=== PATIENT | male | born 1945 | race Caucasian/White ===

== ENCOUNTER → 2024-07-18 | Outpatient (CLI) | payer OTHER, SELFPAY ==
[2024-07-18 10:14] LABS: Basophils # (Auto) 0.1 Thou/mm3 (0.0-0.2); Basophils % (Auto) 1 % (0-2.5); Eosinophils # (Auto) 0.3 Thou/mm3 (0.0-0.5); Eosinophils % (Auto) 5 % (0-10); Hematocrit 40.7 % (41.0-53.0); Hemoglobin 13.5 g/dL (13.5-16.0); Immature Granulocytes % (Auto) 0 % (0-0); Immature Granulocytes Auto 0.01 Thou/mm3 (0.00-0.00); Lymphocytes # (Auto) 1.4 Thou/mm3 (1.0-4.8); Lymphocytes % (Auto) 24 % (10-50); Mean Corpuscular HGB Conc 33.2 g/dl (31.0-37.0); Mean Corpuscular Hemoglobin 31.5 pg (25.0-35.0); Mean Corpuscular Volume 95 fL (80-100); Monocytes # (Auto) 0.6 Thou/mm3 (0.0-0.8); Monocytes % (Auto) 10 % (0-12); Neutrophils # (Auto) 3.8 Thou/mm3 (1.8-7.7); Neutrophils % (Auto) 61 % (37-80); Nucleated Red Blood Cell % 0 /100 WBC (0); Platelet Count 244 Thou/mm3 (140-440); RDW Standard Deviation 42.5 fL (35.1-43.9); Red Blood Count 4.28 Miln/mm3 (4.50-5.90); White Blood Count 6.1 Thou/mm3 (3.8-10.6)
[2024-07-18 10:28] LABS: Alanine Aminotransferase 69 U/L (10-49); Albumin, Serum 4.4 gm/dL (3.4-4.8); Albumin/Globulin Ratio 1.9 (1.2-2.2); Alkaline Phosphatase 88 U/L (46-116); Anion Gap 5 (7-16); Aspartate Amino Transferase 40 U/L (0-34); BUN/Creatinine Ratio 21 Ratio (12-20); Bilirubin,Total 0.6 mg/dL (0.3-1.2); Blood Urea Nitrogen 25 mg/dL (9-23); Calcium 9.6 mg/dL (8.3-10.6); Calcium (Corrected) 9.6 mg/dL (8.5-10.1); Carbon Dioxide 28.3 mMol/L (20.0-31.0); Cardiac Risk Estimate 3.8 RATIO (4.0-6.7); Chloride 105 mMol/L (98-107); Cholesterol 165 mg/dL (132-200); Creatinine (Component) 1.2 mg/dL (0.6-1.3); Globulin 2.3 gm/dL (2.3-3.5); Glucose 102 mg/dL (74-106); HDL Cholesterol 44 mg/dL (40-60); LDL Cholesterol,Calculated 103 mg/dL (0-130); Osmolality,Calculated 280 (275-295); Potassium 4.7 mMol/L (3.4-5.1); Sodium 138 mMol/L (136-145); Thyroid Stimulating Hormone 2.32 uIU/mL (0.55-4.78); Total Protein 6.7 gm/dL (5.7-8.2); Triglycerides 89 mg/dL (30-150); eGFR > 60 See Note
== END | disposition home or self-care (01) ==
PROVIDERS: PCP Family Medicine; Referring Provider Family Medicine; Visit Provider Family Medicine
DX: I10 Essential (primary) hypertension (principal); E78.5 Hyperlipidemia, unspecified
CPT/HCPCS: 36415; 80053; 80061; 84443; 85025

== ENCOUNTER → 2024-09-05 | Outpatient (CLI) | payer OTHER, SELFPAY ==
[2024-09-05 10:35] LABS: Basophils # (Auto) 0.1 Thou/mm3 (0.0-0.2); Basophils % (Auto) 1 % (0-2.5); Eosinophils # (Auto) 0.2 Thou/mm3 (0.0-0.5); Eosinophils % (Auto) 4 % (0-10); Hematocrit 40.6 % (41.0-53.0); Hemoglobin 13.3 g/dL (13.5-16.0); Immature Granulocytes % (Auto) 0 % (0-0); Immature Granulocytes Auto 0.02 Thou/mm3 (0.00-0.00); Lymphocytes # (Auto) 1.3 Thou/mm3 (1.0-4.8); Lymphocytes % (Auto) 19 % (10-50); Mean Corpuscular HGB Conc 32.8 g/dl (31.0-37.0); Mean Corpuscular Hemoglobin 31.2 pg (25.0-35.0); Mean Corpuscular Volume 95 fL (80-100); Monocytes # (Auto) 0.5 Thou/mm3 (0.0-0.8); Monocytes % (Auto) 7 % (0-12); Neutrophils # (Auto) 4.8 Thou/mm3 (1.8-7.7); Neutrophils % (Auto) 70 % (37-80); Nucleated Red Blood Cell % 0 /100 WBC (0); Platelet Count 257 Thou/mm3 (140-440); Red Blood Count 4.26 Miln/mm3 (4.50-5.90); White Blood Count 6.9 Thou/mm3 (3.8-10.6)
[2024-09-05 11:09] LABS: Alanine Aminotransferase 26 U/L (10-49); Albumin, Serum 4.6 gm/dL (3.4-4.8); Albumin/Globulin Ratio 1.9 (1.2-2.2); Alkaline Phosphatase 90 U/L (46-116); Anion Gap 11 (7-16); Aspartate Amino Transferase 21 U/L (0-34); BUN/Creatinine Ratio 19 Ratio (12-20); Bilirubin,Total 0.6 mg/dL (0.3-1.2); Blood Urea Nitrogen 25 mg/dL (9-23); Calcium 9.7 mg/dL (8.3-10.6); Calcium (Corrected) 9.7 mg/dL (8.5-10.1); Carbon Dioxide 28.1 mMol/L (20.0-31.0); Cardiac Risk Estimate 2.9 RATIO (4.0-6.7); Chloride 103 mMol/L (98-107); Cholesterol 138 mg/dL (132-200); Creatinine (Component) 1.3 mg/dL (0.6-1.3); Globulin 2.4 gm/dL (2.3-3.5); Glucose 108 mg/dL (74-106); HDL Cholesterol 47 mg/dL (40-60); LDL Cholesterol,Calculated 76 mg/dL (0-130); Osmolality,Calculated 288 (275-295); Potassium 4.4 mMol/L (3.4-5.1); Sodium 142 mMol/L (136-145); Thyroid Stimulating Hormone 2.58 uIU/mL (0.55-4.78); Triglycerides 75 mg/dL (30-150); eGFR 56 See Note
== END | disposition home or self-care (01) ==
PROVIDERS: PCP Family Medicine; Referring Provider Family Medicine; Visit Provider Family Medicine
DX: I10 Essential (primary) hypertension (principal); E78.5 Hyperlipidemia, unspecified
CPT/HCPCS: 36415; 80053; 80061; 84443; 85025

== ENCOUNTER 2024-12-27 12:57 | Emergency (ER) | payer OTHER, SELFPAY ==
[2024-12-27 13:04] VITALS: BP 193/97; BP 212/102; PULSE 63; RESP 18; TEMP 36.7; O2SAT 97; BMI 28.7
--- NOTE | 2024-12-27 13:13 | EKG_ITS ---
[facility] Test Date: 2024-12-27 Pat Name: GONZALEZ FRANCOIS Department: Room: - Gender: Male Facility Worker: : 1945 Requested By: Julia Srinivasan Order Number: [id number] Reading MD: Julia Srinivasan Measurements Intervals [place] Rate: 65 P: 44 VA: 174 QRS: -7 QRSD: 118 T: 64 QT: 402 QTc: 419 Interpretive Statements SINUS RHYTHM LEFT VENTRICULAR HYPERTROPHY AND ST-T CHANGE [VOLTAGE CRITERIA PLUS ST/T ABNORMALITY] Compared to ECG 09/16/2019 10:23:01 Left ventricular hypertrophy now present ST (T wave) deviation now present Sinus bradycardia no longer present Intraventricular conduction delay no longer present T-wave abnormality no longer present /store/S0/[id number].pdf
--- NOTE | 2024-12-27 13:18 | EDNOTE_ITS ---
ED Medical Clearance RME/HPI General Chief complaint: Medical Clearance Stated complaint: MEDICAL CLEARANCE Time Seen by Provider: 12/27/24 13:17 Arrival date/time: 12/27/24 12:57 Limitations: no limitations RME / HPI RME / HPI Narrative: 79 year old male with history of hypertension, CAD s/p PCI, hyperlipidemia presents to the ED BIB [facility] for evaluation of chest pain and elevated blood pressure today. Patient describes his pain as tightness in sensation that is located most to the left side of chest and began after being arrested. Denied having any pain prior to arrest. Per [facility] who accompany the patient, while in detention the blood pressure was noted to be 180/110. While in the ED patient has no other complaints. Related Information Home Medications ?Medication ?Instructions ?Recorded ?Confirmed propranolol 40 mg tablet 40 mg PO DAILY #0 tabs 11/0711/21/18 simvastatin 40 mg tablet (Zocor) 40 mg PO HS #0 tabs 0 11/07/16 11/21/18 aspirin 81 mg tablet,delayed 81 mg PO QDAY 11/18/18 release (Aspir-Low) coQ10 (liposomal ubiquinol) 100 30 ml PO DAILY 9 11/18/18 mg/5 mL oral suspension hydroxyzine HCl 50 mg tablet 50 mg PO DAILY 11/18/18 0 11/21/18 loratadine 10 mg tablet 10 mg PO QDAY 11/18/1811/21 omega 5-umg-wvg-fish oil 1,000 mg 2 cap PO DAILY 11/1811/18/18 (120 mg-180 mg) capsule (Fish Oil) pantoprazole 40 mg tablet,delayed 40 mg PO QDAY 11/21/18 release tramadol 100 mg tablet,extended 100 mg PO BID 11/18/18 11/21/18 release 24 hr valsartan 80 mg tablet 80 mg PO QDAY 11/18/1811/21 Previous Rx's ?Medication ?Instructions ?Recorded naproxen 500 mg tablet (Naprosyn) 500 mg PO BID #30 ta bs 07/24/20 Allergies Allergy/AdvReac Type Severity Reaction Status Date / Time No Known Allergies Allergy Verified 11/21/18 06:46 Review of Systems Review of Systems Narrative Review of Systems: GEN: No fever, no chills, no weight loss EYES: No discharge, no visual changes, no pain HEENT: No ear pain, no congestion, no sore throat PULM: No shortness of breath, no cough, no congestion CV: + chest pain, no dyspnea on exertion, no palpitations GI: No nausea, no vomiting, no diarrhea, no pain, no constipation : No frequency, no urgency, no dysuria MUSC/SKEL: No joint pain, no back pain SKIN: No rash NEURO: No weakness, no headache Past Medical History Past Medical History NEUROLOGIC: Positive Neurological Disorders and Cerebrovascular Accident (10/[address] [facility]) CARDIAC: Positive Cardiac Disorders (CORONARY STENT X1 2009), Hypercholesterolemia (TAKES MED) and Hypertension (TAKES MED) MUSCULOSKELETAL: Positive Musculoskeletal Disorders and Arthritis OTHER HISTORY: Positive Hospitalization (HOSP FOR CVA 10/11) and Chicken Pox Family History FAMILY HISTORY: Positive Family Cardiac Disorders (BROTHER (OPEN HEART), MOTHER (HTN),FATHER (CVA)), Family Cancer (MOTHER) and Family Surgery (MOTHER,FATHER) Surgical History SURGICAL: Positive Coronary Stent (X1) and Tonsillectomy Social History SMOKING STATUS: Former smoker ED Exam General Limitations: Present no limitations General appearance: Present alert and in no apparent distress Head Head exam: Present atraumatic, normocephalic and normal inspection Eye Eye exam: Present normal appearance, PERRL and EOMI ENT ENT exam: Present normal exam, normal oropharynx and mucous membranes moist Neck Neck exam: Present normal inspection, full ROM and trachea midline Chest Chest inspection: Present normal inspection and symmetric chest wall rise Respiratory Respiratory exam: Present normal lung sounds bilaterally Cardiovascular Cardiovascular exam: Present regular rate, normal rhythm and normal heart sounds Abdominal Exam Abdominal exam: Present soft and normal bowel sounds Extremities Exam Extremities exam: Present normal inspection and full ROM Back Exam Back exam: Present normal inspection and full ROM Neurological Exam Neurological exam: Present alert, oriented X3 and CN II-XII intact Psychiatric Psychiatric exam: Present normal affect and normal mood Skin Skin exam: Present warm, dry, intact and normal color Course Quality Measures none Orders Category Date Time Status Computer Animator Q4H START 00 Care 12/27/24 13:12 Active EKG (ED ONLY) *Do not use* NOW Care 12/27/24 13:13 Active EKG (ED Only) Stat Exams 12/27/24 13:13 Draft XR chest 1V portable Stat Exams 12/27/24 13:18 Completed B-Type Natriuretic Peptide Stat Lab 12/27/24 13:45 Completed CBC Stat Lab 12/27/24 13:45 Completed Comprehensive Metabolic Panel Stat Lab 12/27/24 13:45 Completed HCG Titer if Positive Stat Lab 12/27/24 13:45 Completed Lipase Stat Lab 12/27/24 13:45 Completed Magnesium Stat Lab 12/27/24 13:45 Completed Partial Thromboplastin Time Stat Lab 12/27/24 13:45 Completed Prothrombin Time with INR Stat Lab 12/27/24 13:45 Completed Troponin I Stat Lab 12/27/24 13:45 Completed Ondansetron Inj [Zofran Inj] Med 12/27/24 13:17 Active 4 mg IV Q1HR PRN amLODIPine BESYLATE [Norvasc] Med 12/27/24 17:02 Discontinued 10 mg PO X1 ONE Vital Signs Vital signs: Vital Signs Temperature 98.1 F 12/27/24 13:04 Pulse Rate 63 12/27/24 13:04 Respiratory Rate 18 12/27/24 13:04 Blood Pressure 212/102 H 12/27/24 13:04 Pulse Oximetry (%) 97 12/27/24 13:04 Oxygen Delivery Method Room Air 12/27/24 13:04 Pulse ox is 97% on room air which is adequate. Medical Clearance MDM Narrative [facility] Narrative:: Isabella Collier am scribing for and in the presence of Dr. Rojas. 79 year old male presented to the ED for chest pain following arrest. Full cardiac workup was performed, including EKG, cardiac enzymes, and chest X- ray?all of which were unremarkable. No evidence of acute coronary syndrome, pneumothorax, or other emergent pathology. Chest pain appears non-cardiac in etiology. The patient remained hemodynamically stable throughout evaluation. Given normal diagnostic findings and clinical stability, the patient was medically cleared for incarceration. Patient data External records reviewed:: [facility] previous records (I reviewed ED visit on 07/24/2020 ) Clinical information provided by:: patient and law enforcement Social determinants that could affect healthcare access:: none Patient has the following chronic illnesses:: HTN, CAD s/p PCI How is presenting disease/condition affected by chronic disease/condition?: exacerbated by Evaluation data The following diagnostics were reviewed and interpreted by me:: lab results and EKG tracing(s) (EKG @ 13:18 hours. Sinus rhythm, rate 65, LVH, no ischemia, normal QT interval ) Lab and/or radiology exams considered but not ordered:: None Interpretation Summary: Ordering Physician: Julia Srinivasan MD Date of Service: 12/27/24 Procedure(s): XR chest 1V portable Accession Number(s): [id number] cc: Julia Srinivasan MD; Cameron Sandoval MD; Kaylene Toscano MD~ Examination: AP chest single view TECHNIQUE: AP portable upright chest single view Exam date and time: December 27, 2024 1458 hours INDICATIONS: Chest pain shortness of breath beginning today FINDINGS: Normal heart size No lobar pneumonia or pulmonary edema Prominent osteopenia IMPRESSION: No lobar pneumonia or pulmonary edema Dictated By: Cameron Sandoval MD Signed By: <Electronically signed by Cameron Sandoval MD in OV> 12/27/24 1512 Medications / Prescriptions Medications or Prescriptions considered but not ordered:: None Medication administrations:: Medication Administration History Ondansetron HCl (Ondansetron Inj 2 Mg/Ml Inj 2 Ml) 4 mg IV Q1HR PRN PRN Reason: PERSISTENT NAUSEA OR VOMITING Discontinued Medications Amlodipine Besylate (Amlodipine Besylate 5 Mg Tablet) 10 mg PO X1 ONE Stop: 12/27/24 17:03 Last Admin: 12/27/24 17:19 Dose: 10 mg Documented By: EF See above Consultations Consultation(s) initiated? (list below): No Diagnosis Medical Clearance Differential Diagnosis: other (Chest pain, angina, AR, anxiety ) Most likely diagnosis given after review of the tests above:: Acute chest wall pain Admission Indicated Admission indicated?: not indicated Admission Request Was there a request for admission?: No Disposition Plan Disposition Plan: Discharge Discharge Attestation Discharge Attestation: The patient and all family members were given an opportunity to ask questions and understood the discharge instructions. Discharge instructions specifically effects, indications for sooner follow up or return to the emergency department, and the expected course of current diagnosis. Patient condition: Stable Discharge Plan Plan Patient Disposition: Halfway/Court/Law Prescriptions/Referrals Prescriptions/Med Rec: No Action simvastatin [Zocor] 40 MG tablet 40 mg PO HS Qty: 0 propranolol 40 mg Tablet 40 mg PO DAILY Qty: 0 valsartan 80 mg Tablet 80 mg PO QDAY hydroxyzine HCl 50 mg Tablet 50 mg PO DAILY aspirin [Aspir-Low] 81 mg Tablet,Delayed Release (Dr/Ec) 81 mg PO QDAY pantoprazole 40 mg Tablet,Delayed Release (Dr/Ec) 40 mg PO QDAY loratadine 10 mg Tablet 10 mg PO QDAY tramadol 100 mg Tablet Extended Release 24 Hr 100 mg PO BID coQ10 (liposomal ubiquinol) 100 mg/5 mL Suspension 30 ml PO DAILY omega 3-rey-uqw-fish oil [Fish Oil] 1,000 mg (120 mg-180 mg) Capsule 2 cap PO DAILY naproxen [Naprosyn] 500 mg tablet 500 mg PO BID Qty: 30 0RF Referrals: Kaylene Perrin MD [Primary Care Provider] - In 1 week Problem List Clinical Impression: Acute chest wall pain Patient/Caregiver Discharge Instructions Discharge Activity: activity as tolerated Education Materials: ED Chest Pain, Noncardiac Print Language: Slovak
[2024-12-27 13:50] LABS: Basophils # (Auto) 0.1 Thou/mm3 (0.0-0.2); Basophils % (Auto) 1 % (0-2.5); Eosinophils # (Auto) 0.1 Thou/mm3 (0.0-0.5); Eosinophils % (Auto) 1 % (0-10); Hematocrit 39.3 % (41.0-53.0); Hemoglobin 13.4 g/dL (13.5-16.0); Immature Granulocytes % (Auto) 0 % (0-0); Immature Granulocytes Auto 0.02 Thou/mm3 (0.00-0.00); Lymphocytes % (Auto) 13 % (10-50); Mean Corpuscular HGB Conc 34.1 g/dl (31.0-37.0); Mean Corpuscular Hemoglobin 31.5 pg (25.0-35.0); Mean Corpuscular Volume 92 fL (80-100); Monocytes # (Auto) 0.5 Thou/mm3 (0.0-0.8); Monocytes % (Auto) 7 % (0-12); Neutrophils # (Auto) 6.1 Thou/mm3 (1.8-7.7); Neutrophils % (Auto) 78 % (37-80); Nucleated Red Blood Cell % 0 /100 WBC (0); Platelet Count 208 Thou/mm3 (140-440); Red Blood Count 4.26 Miln/mm3 (4.50-5.90); White Blood Count 7.8 Thou/mm3 (3.8-10.6)
[2024-12-27 14:09] LABS: B-Type Natriuretic Peptide 46 pg/mL (0-100); INR 1.1 (0.9-1.3); Partial Thromboplastin Time 28.2 Seconds (22.0-36.0); Prothrombin Time 12.1 Seconds (9.0-12.2)
[2024-12-27 14:11] LABS: Alanine Aminotransferase 23 U/L (10-49); Albumin, Serum 4.5 gm/dL (3.4-4.8); Albumin/Globulin Ratio 1.7 (1.2-2.2); Alkaline Phosphatase 80 U/L (46-116); Anion Gap 7 (7-16); Aspartate Amino Transferase 20 U/L (0-34); BUN/Creatinine Ratio 16 Ratio (12-20); Bilirubin,Total 0.9 mg/dL (0.3-1.2); Blood Urea Nitrogen 18 mg/dL (9-23); Calcium 9.3 mg/dL (8.3-10.6); Calcium (Corrected) 9.3 mg/dL (8.5-10.1); Carbon Dioxide 25.2 mMol/L (20.0-31.0); Chloride 106 mMol/L (98-107); Creatinine (Component) 1.1 mg/dL (0.6-1.3); Estimated Creatinine Clearance 64.4 mL/min (>60); Globulin 2.6 gm/dL (2.3-3.5); Glucose 112 mg/dL (74-106); Lipase 31 U/L (12-53); Magnesium 2.2 mg/dL (1.6-2.6); Osmolality,Calculated 278 (275-295); Potassium 3.9 mMol/L (3.4-5.1); Sodium 138 mMol/L (136-145); Total Protein 7.1 gm/dL (5.7-8.2); Troponin I < 0.020 ng/mL (0.0-0.045); eGFR > 60 See Note
[2024-12-27 14:19] LABS: HCG Titer if Positive Negative
[2024-12-27 15:46] VITALS: BP 186/99; PULSE 69; RESP 16; TEMP 36.8; O2SAT 92
[2024-12-27 17:16] VITALS: PULSE 60
[2024-12-27 17:19] VITALS: BP 182/99; PULSE 59
[2024-12-27] MEDS: amLODIPine BESYLATE 5 MG TABLET 10 MG PO (17:19)
[2024-12-27 18:09] VITALS: BP 180/96; PULSE 65
[2024-12-27] MEDS: cloNIDine HCL 0.1 MG TABLET 0.2 MG PO (18:09)
[2024-12-27 18:38] VITALS: BP 175/93; PULSE 56; RESP 18; TEMP 36.7; O2SAT 95
== END 2024-12-27 18:48 ==
PROVIDERS: Emergency Provider Emergency Medicine; PCP Family Medicine
DX: Z02.89 Encounter for other administrative examinations (principal); I10 Essential (primary) hypertension; I25.10 Atherosclerotic heart disease of native coronary artery without angina pectoris; E78.5 Hyperlipidemia, unspecified; Z95.5 Presence of coronary angioplasty implant and graft; R07.89 Other chest pain
CPT/HCPCS: 36415; 71045; 80053; 83690; 83735; 83880; 84484; 84703; 85025; 85610; 85730; 93005; 99283; A9270

== ENCOUNTER → 2025-03-19 | Outpatient (CLI) | payer OTHER, SELFPAY ==
[2025-03-19 11:36] LABS: Basophils # (Auto) 0.0 Thou/mm3 (0.0-0.2); Basophils % (Auto) 1 % (0-2.5); Eosinophils # (Auto) 0.1 Thou/mm3 (0.0-0.5); Eosinophils % (Auto) 3 % (0-10); Hematocrit 42.4 % (41.0-53.0); Hemoglobin 14.0 g/dL (13.5-16.0); Immature Granulocytes Auto 0.02 Thou/mm3 (0.00-0.00); Lymphocytes # (Auto) 1.5 Thou/mm3 (1.0-4.8); Lymphocytes % (Auto) 26 % (10-50); Mean Corpuscular HGB Conc 33.0 g/dl (31.0-37.0); Mean Corpuscular Hemoglobin 31.7 pg (25.0-35.0); Mean Corpuscular Volume 96 fL (80-100); Monocytes # (Auto) 0.4 Thou/mm3 (0.0-0.8); Monocytes % (Auto) 8 % (0-12); Neutrophils # (Auto) 3.5 Thou/mm3 (1.8-7.7); Neutrophils % (Auto) 62 % (37-80); Nucleated Red Blood Cell # 0.00 Thou/mm3 (0.00-0.00); Nucleated Red Blood Cell % 0 /100 WBC (0); Platelet Count 244 Thou/mm3 (140-440); RDW Standard Deviation 45.0 fL (35.1-43.9); Red Blood Count 4.42 Miln/mm3 (4.50-5.90); White Blood Count 5.6 Thou/mm3 (3.8-10.6)
[2025-03-19 12:01] LABS: Alanine Aminotransferase 20 U/L (10-49); Albumin, Serum 4.2 gm/dL (3.4-4.8); Alkaline Phosphatase 88 U/L (46-116); Anion Gap 11 (7-16); Aspartate Amino Transferase 18 U/L (0-34); BUN/Creatinine Ratio 17 Ratio (12-20); Bilirubin,Direct 0.2 mg/dL (0.0-0.3); Bilirubin,Total 0.7 mg/dL (0.3-1.2); Blood Urea Nitrogen 19 mg/dL (9-23); Calcium 9.1 mg/dL (8.3-10.6); Carbon Dioxide 27.5 mMol/L (20.0-31.0); Cardiac Risk Estimate 4.0 RATIO (4.0-6.7); Chloride 106 mMol/L (98-107); Cholesterol 172 mg/dL (132-200); Creatinine (Component) 1.1 mg/dL (0.6-1.3); Free T4 (Free Thyroxine) 1.08 ng/dL (0.89-1.76); Glucose 103 mg/dL (74-106); HDL Cholesterol 43 mg/dL (40-60); LDL Cholesterol,Calculated 112 mg/dL (0-130); Osmolality,Calculated 289 (275-295); Potassium 4.3 mMol/L (3.4-5.1); Sodium 144 mMol/L (136-145); Thyroid Stimulating Hormone 1.70 uIU/mL (0.55-4.78); Total Protein 6.4 gm/dL (5.7-8.2); Triglycerides 87 mg/dL (30-150); eGFR > 60 See Note
== END | disposition home or self-care (01) ==
LOC: COPL 10:25
PROVIDERS: PCP Family Medicine; Referring Provider Internal Medicine Cardiovascular Disease; Visit Provider Internal Medicine Cardiovascular Disease
DX: I10 Essential (primary) hypertension (principal); E78.5 Hyperlipidemia, unspecified; I25.118 Atherosclerotic heart disease of native coronary artery with other forms of angina pectoris; I49.9 Cardiac arrhythmia, unspecified
CPT/HCPCS: 36415; 80048; 80061; 80076; 84439; 84443; 85025

== ENCOUNTER → 2025-03-28 | Outpatient (CLI) | payer OTHER, SELFPAY ==
--- NOTE | 2025-03-28 14:19 | XR_ITS ---
Examination: Wrist, left 2 views Technique: Wrist AP, lateral 2 views Date and time of exam: March 28, 2025 1425 hours Comparison December 24, 2022 INDICATIONS: Wrist pain beginning one year ago. 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
== END | disposition home or self-care (01) ==
PROVIDERS: PCP Family Medicine; Referring Provider Family Medicine; Visit Provider Family Medicine
DX: M79.642 Pain in left hand (principal)
CPT/HCPCS: 73100

== ENCOUNTER → 2025-04-11 | Outpatient (CLI) | payer OTHER, SELFPAY ==
--- NOTE | 2025-04-11 14:57 | XR_ITS ---
Examination: Bilateral hands, 6 views. Technique: AP, Oblique, Lateral each hand total 6 views Date and time of exam: April 11, 2025 1500 hours INDICATIONS: Bilateral hand pain one year. 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
== END | disposition home or self-care (01) ==
LOC: CDIM 14:39
PROVIDERS: PCP Family Medicine; Referring Provider Nurse Practitioner Gerontology; Visit Provider Nurse Practitioner Gerontology
DX: M19.042 Primary osteoarthritis, left hand (principal); M19.041 Primary osteoarthritis, right hand; M18.0 Bilateral primary osteoarthritis of first carpometacarpal joints
CPT/HCPCS: 73130